=== PATIENT | male | born 1990 | race Caucasian/White ===

== ENCOUNTER 2023-10-16 10:36 | Emergency (ER) | payer MEDICAID ==
[~2023-10-16] VITALS: Ht 170.2 cm; Wt 80.8 kg
[2023-10-16 10:46] VITALS: BP 147/80; PULSE 62; RESP 16; TEMP 98; O2SAT 100
[2023-10-16] MEDS ORDERED: SPIR50TA5 PO (11:54)
[2023-10-16] MEDS ORDERED: EST1T PO (11:54)
== END 2023-10-16 12:20 | disposition home or self-care (01) ==
LOC: ER 10:36
DX: F64.0 Transsexualism (principal); Z76.0 Encounter for issue of repeat prescription
CPT/HCPCS: 99281; 99283